=== PATIENT | male | born 2000 | race Caucasian/White ===

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

== ENCOUNTER 2022-05-16 16:52 | Emergency (ER) | payer OTHER ==
[~2022-05-16] VITALS: Ht 167.6 cm; Wt 110.0 kg
[2022-05-16 17:12] VITALS: BP 143/86
[2022-05-16] MEDS ORDERED: IBUPROFEN 600 MG TABLET PO ONE (18:00)
[2022-05-16 18:08] LABS: COVID AG,FIA SOURCE NASOPHARYNGEAL
[2022-05-16 18:24] LABS: RAPID GROUP A STREP NEGATIVE (NEGATIVE)
[2022-05-16 18:32] LABS: INFLUENZA TYPE A NEGATIVE FOR TYPE A (NEGATIVE); INFLUENZA TYPE B NEGATIVE FOR TYPE B (NEGATIVE)
== END 2022-05-16 18:42 | disposition home or self-care (01) ==
LOC: EMS 16:58
DX: B34.9 Viral infection, unspecified (principal); Z20.822 Contact with and (suspected) exposure to COVID-19; I10 Essential (primary) hypertension
CPT/HCPCS: 87430; 87804; 99283